=== PATIENT | female | born 1965 | race Caucasian/White ===

== ENCOUNTER 2016-07-11 04:16 | Emergency (ER) | payer MEDICARE ==
[2016-06-21 03:55] VITALS: BMI 43.1
[~2016-07-11 04:16] MED LIST: AMBIEN10 MG PO; ATIVAN1 MG; ATIVAN1 MG PO; CYMBALTA60 MG PO; HYDROCHLOROTHIA25 MG PO; HYDROCODONE-APA1 TAB PO; LYRICA50 MG PO; MAXALT10 MG PO; PERCOCET 5-3251 TAB PO; PROTONIX40 MG PO; VITAMIN D31000 UNI2 PO; VITAMIN D50000 UNIT PO; ZANAFLEX4 MG PO
[2016-07-11 04:39] LABS: APPEARANCE HAZY (CLEAR); BILIRUBIN NEGATIVE (NEGATIVE); COLOR YELLOW (YELLOW); GLUCOSE NEGATIVE (NEGATIVE); KETONE NEGATIVE (NEGATIVE); LEUKOCYTE ESTERASE NEGATIVE (NEGATIVE); NITRITE NEGATIVE (NEGATIVE); PROTEIN NEGATIVE (NEGATIVE); SPECIFIC GRAVITY 1.015 (1.005-1.020); UROBILINOGEN NORMAL (NORMAL)
[2016-07-11 04:55] LABS: BACTERIA MODERATE /hpf (NONE SEEN); EPITHELIAL CELLS 0-5 /hpf (0-5); RED CELLS - URINE 0-5 /hpf (0-5); WHITE CELLS - URINE 0-5 /hpf (0-5)
== END 2016-07-11 05:24 | disposition home or self-care (01) ==
LOC: D.ER 04:16
PROVIDERS: Emergency Medicine
DX: M54.5 Low back pain (principal); G89.29 Other chronic pain; M25.512 Pain in left shoulder; M79.602 Pain in left arm

== ENCOUNTER 2016-08-01 00:16 | Emergency (ER) | payer MEDICARE, MEDICAID ==
[2016-06-21 03:55] VITALS: BMI 43.1
== END 2016-08-01 01:52 | disposition home or self-care (01) ==
LOC: D.ER 00:16
DX: M79.7 Fibromyalgia (principal); R00.0 Tachycardia, unspecified

== ENCOUNTER 2016-09-08 06:31 | Emergency (ER) | payer MEDICARE ==
[2016-06-21 03:55] VITALS: BMI 43.1
== END 2016-09-08 08:02 | disposition home or self-care (01) ==
LOC: D.ER 06:31
DX: M54.5 Low back pain (principal); R10.2 Pelvic and perineal pain

== ENCOUNTER 2016-09-30 02:28 | Emergency (ER) | payer MEDICARE ==
[2016-06-21 03:55] VITALS: BMI 43.1
[2016-09-30 04:41] LABS: BASOPHILS 0.8 % (0.0-2.0); EOSINOPHILS 2.2 % (0-7); HEMATOCRIT 38.7 % (36.0-48.0); HEMOGLOBIN 12.6 g/dL (12-16); IMMATURE GRANULOCYTES 0.3 % (0-5); LYMPHOCYTES 45.4 % (15-50); MCHC 32.6 g/dL (31.0-37.0); MEAN PLATELET VOLUME 9.5 fL (7.4-10.4); MONOCYTES 7.2 % (2-11); NEUTROPHILS 44.1 % (40-80); PLATELET COUNT 294 10x3/uL (130-400); RBC 4.35 10x6/uL (4.00-5.40); RDW 13.2 % (11.5-14.5); WBC 6.2 10x3/uL (4.8-10.8)
[2016-09-30 04:58] LABS: AMYLASE - SERUM 36 U/L (25-115); CALC OSMOLALITY 280 mosm/kg (275-300); CALCIUM 8.8 mg/dL (8.5-10.1); CARBON DIOXIDE 27.8 mmol/L (21.0-32.0); CHLORIDE - SERUM 103 mmol/L (98-107); CREATININE - SERUM 0.8 mg/dL (0.6-1.3); GLUCOSE 130 mg/dL (74-106); POTASSIUM - SERUM 3.9 mmol/L (3.5-5.1); SODIUM 140 mmol/L (136-145); UREA NITROGEN 12 mg/dL (7-18); eGFR NON AFRICAN AMERICAN 80 mL/min (90-120)
== END 2016-09-30 06:13 | disposition home or self-care (01) ==
LOC: D.ER 02:28
PROVIDERS: Family Medicine
DX: R10.13 Epigastric pain (principal)

== ENCOUNTER 2017-01-14 06:19 | Emergency (ER) | payer MEDICARE ==
[2016-06-21 03:55] VITALS: BMI 43.1
[2017-01-14 06:45] LABS: APPEARANCE HAZY (CLEAR); BILIRUBIN NEGATIVE (NEGATIVE); COLOR YELLOW (YELLOW); GLUCOSE NEGATIVE (NEGATIVE); KETONE NEGATIVE (NEGATIVE); LEUKOCYTE ESTERASE TRACE (NEGATIVE); NITRITE NEGATIVE (NEGATIVE); PROTEIN NEGATIVE (NEGATIVE); UROBILINOGEN NORMAL (NORMAL)
[2017-01-14 06:58] LABS: WHITE CELLS - URINE 25-50 /hpf (0-5)
[2017-01-14 06:59] LABS: BACTERIA MANY /hpf (NONE SEEN); GRANULAR CAST RARE /lpf (NONE SEEN); HYALINE CAST OCC /lpf (NONE SEEN)
[2017-01-14 07:00] LABS: BASOPHILS 0.7 % (0-2); HEMATOCRIT 42.1 % (36.0-48.0); HEMOGLOBIN 13.7 g/dL (12-16); IMMATURE GRANULOCYTES 0.1 % (0-5); LYMPHOCYTES 38.9 % (15-50); MCHC 32.5 g/dL (31.0-37.0); MEAN PLATELET VOLUME 9.5 fL (7.4-10.4); MONOCYTES 7.7 % (2-11); NEUTROPHILS 50.6 % (40-80); PLATELET COUNT 330 10x3/uL (130-400); RBC 4.73 10x6/uL (4.00-5.40); RDW 12.6 % (11.5-14.5); WBC 7.6 10x3/uL (4.8-10.8)
[2017-01-14 07:13] LABS: ALBUMIN 3.6 g/dL (3.4-5.0); ANION GAP 13.6 mmol/L (8-16); BILIRUBIN - TOTAL 0.39 mg/dL (0.2-1.3); CALCIUM 9.4 mg/dL (8.5-10.1); CARBON DIOXIDE 28.9 mmol/L (21.0-32.0); CREATININE - SERUM 0.9 mg/dL (0.6-1.3); POTASSIUM - SERUM 3.5 mmol/L (3.5-5.1)
== END 2017-01-14 10:04 | disposition home or self-care (01) ==
LOC: D.ER 06:19
PROVIDERS: Family Medicine
DX: N39.0 Urinary tract infection, site not specified (principal)

== ENCOUNTER 2017-01-28 06:25 | Emergency (ER) | payer MEDICARE ==
[2016-06-21 03:55] VITALS: BMI 43.1
[2017-01-28 06:47] LABS: APPEARANCE CLEAR (CLEAR); BILIRUBIN NEGATIVE (NEGATIVE); COLOR YELLOW (YELLOW); GLUCOSE NEGATIVE (NEGATIVE); KETONE NEGATIVE (NEGATIVE); LEUKOCYTE ESTERASE TRACE (NEGATIVE); NITRITE NEGATIVE (NEGATIVE); PROTEIN NEGATIVE (NEGATIVE); SPECIFIC GRAVITY 1.015 (1.005-1.020); UROBILINOGEN NORMAL (NORMAL)
[2017-01-28 07:00] LABS: BACTERIA MANY /hpf (NONE SEEN); EPITHELIAL CELLS 0-5 /hpf (0-5); HYALINE CAST RARE /lpf (NONE SEEN); WHITE CELLS - URINE 0-5 /hpf (0-5)
== END 2017-01-28 07:50 | disposition home or self-care (01) ==
LOC: D.ER 06:25
PROVIDERS: Family Medicine
DX: M54.5 Low back pain (principal); R82.99 Other abnormal findings in urine

== ENCOUNTER 2017-04-11 03:40 | Emergency (ER) | payer MEDICARE ==
[2016-06-21 03:55] VITALS: BMI 43.1
[2017-04-11 04:20] LABS: BASOPHILS 0.4 % (0-2); EOSINOPHILS 1.3 % (0-7); HEMATOCRIT 42.8 % (36.0-48.0); HEMOGLOBIN 14.1 g/dL (12-16); IMMATURE GRANULOCYTES 0.6 % (0-5); LYMPHOCYTES 30.2 % (15-50); MCH 29.1 pg (26.0-34.0); MCHC 32.9 g/dL (31.0-37.0); MCV 88.4 fL (80.0-100.0); MEAN PLATELET VOLUME 9.4 fL (7.4-10.4); MONOCYTES 7.7 % (2-11); NEUTROPHILS 59.8 % (40-80); PLATELET COUNT 314 10x3/uL (130-400); RBC 4.84 10x6/uL (4.00-5.40); RDW 13.1 % (11.5-14.5); WBC 8.5 10x3/uL (4.8-10.8)
[2017-04-11 04:37] LABS: ALBUMIN 3.9 g/dL (3.4-5.0); BILIRUBIN - TOTAL 0.5 mg/dL (0.2-1.3); CARBON DIOXIDE 31.7 mmol/L (21.0-32.0); CREATININE - SERUM 0.9 mg/dL (0.6-1.3); POTASSIUM - SERUM 3.7 mmol/L (3.5-5.1); PROTEIN - SERUM 8.4 g/dL (6.4-8.2)
[2017-04-11 04:51] LABS: APPEARANCE CLEAR (CLEAR); BILIRUBIN NEGATIVE (NEGATIVE); COLOR YELLOW (YELLOW); GLUCOSE NEGATIVE (NEGATIVE); KETONE NEGATIVE (NEGATIVE); NITRITE NEGATIVE (NEGATIVE); PROTEIN TRACE mg/dL (NEGATIVE); UROBILINOGEN NORMAL (NORMAL)
[2017-04-11 04:52] LABS: BACTERIA MANY /hpf (NONE SEEN); EPITHELIAL CELLS 0-5 /hpf (0-5); RED CELLS - URINE 0-5 /hpf (0-5); WHITE CELLS - URINE 0-5 /hpf (0-5)
== END 2017-04-11 08:32 | disposition home or self-care (01) ==
LOC: D.ER 03:40
PROVIDERS: Family Medicine
DX: R10.9 Unspecified abdominal pain (principal)

== ENCOUNTER 2017-05-13 02:34 | Emergency (ER) | payer MEDICARE ==
[2016-06-21 03:55] VITALS: BMI 43.1
== END 2017-05-13 03:30 | disposition home or self-care (01) ==
LOC: D.ER 02:34
DX: R10.9 Unspecified abdominal pain (principal)

== ENCOUNTER 2017-06-11 03:32 | Emergency (ER) | payer MEDICARE ==
[2016-06-21 03:55] VITALS: BMI 43.1
== END 2017-06-11 04:13 | disposition home or self-care (01) ==
LOC: D.ER 03:32
DX: M54.2 Cervicalgia (principal); R07.89 Other chest pain

== ENCOUNTER 2017-09-09 06:20 | Emergency (ER) | payer MEDICARE ==
[2016-06-21 03:55] VITALS: BMI 43.1
[2017-09-09 07:39] LABS: APPEARANCE HAZY (CLEAR); BILIRUBIN NEGATIVE (NEGATIVE); COLOR YELLOW (YELLOW); GLUCOSE NEGATIVE (NEGATIVE); KETONE NEGATIVE (NEGATIVE); NITRITE NEGATIVE (NEGATIVE); PROTEIN NEGATIVE (NEGATIVE); SPECIFIC GRAVITY 1.015 (1.005-1.020); UROBILINOGEN NORMAL (NORMAL)
[2017-09-09 07:41] LABS: BACTERIA MANY /hpf (NONE SEEN); EPITHELIAL CELLS 0-5 /hpf (0-5); WHITE CELLS - URINE OCC /hpf (0-5)
[2017-09-09 07:52] LABS: BASOPHILS 0.3 % (0-2); EOSINOPHILS 0.9 % (0-7); HEMATOCRIT 42.2 % (36.0-48.0); HEMOGLOBIN 14.1 g/dL (12-16); IMMATURE GRANULOCYTES 0.5 % (0-5); LYMPHOCYTES 29.9 % (15-50); MCH 29.2 pg (26.0-34.0); MCHC 33.4 g/dL (31.0-37.0); MCV 87.4 fL (80.0-100.0); MONOCYTES 7.5 % (2-11); NEUTROPHILS 60.9 % (40-80); PLATELET COUNT 326 10x3/uL (130-400); RBC 4.83 10x6/uL (4.00-5.40); RDW 13.1 % (11.5-14.5); WBC 8.7 10x3/uL (4.8-10.8)
[2017-09-09 08:13] LABS: APTT 27.6 SECONDS (22.8-39.4)
[2017-09-09 08:14] LABS: D-DIMER-QUANTITATIVE 1.19 ug/mLFEU (0.20-0.54); INR 0.99 (0.85-1.17); PROTIME 12.7 SECONDS (11.6-15.0)
[2017-09-09 08:51] LABS: ALBUMIN 3.6 g/dL (3.4-5.0); ALKALINE PHOSPHATASE 85 U/L (46-116); ALT (SGPT) 30 U/L (10-68); BILIRUBIN - TOTAL 0.28 mg/dL (0.2-1.3); CALC OSMOLALITY 274 mosm/kg (275-300); CALCIUM 9.3 mg/dL (8.5-10.1); CARBON DIOXIDE 28.1 mmol/L (21.0-32.0); CHLORIDE - SERUM 101 mmol/L (98-107); CREATININE - SERUM 0.9 mg/dL (0.6-1.3); GLUCOSE 106 mg/dL (74-106); POTASSIUM - SERUM 3.4 mmol/L (3.5-5.1); PROTEIN - SERUM 8.3 g/dL (6.4-8.2); SODIUM 138 mmol/L (136-145); UREA NITROGEN 11 mg/dL (7-18); eGFR NON AFRICAN AMERICAN 70 mL/min (90-120)
[2017-09-09 09:06] LABS: AMYLASE - SERUM 35 U/L (25-115); CKMB 0.5 U/L (0.0-3.6); CREATINE KINASE 28 UL (21-215); LIPASE 129 U/L (73-393); MAGNESIUM - SERUM 1.9 mg/dL (1.8-2.4); PRO BNP 51 pg/mL (0-125); THYROID STIMULATING HORMONE 2.04 uIU/mL (0.36-3.74)
[2017-09-09 09:07] LABS: TROPONIN-I < 0.017 ng/mL (0.000-0.060)
== END 2017-09-09 12:33 | disposition home or self-care (01) ==
LOC: D.ER 06:20
PROVIDERS: Family Medicine
DX: R07.9 Chest pain, unspecified (principal); R00.0 Tachycardia, unspecified

== ENCOUNTER 2017-10-10 03:28 | Emergency (ER) | payer MEDICARE ==
[2016-06-21 03:55] VITALS: BMI 43.1
[2017-10-10 04:05] LABS: BASOPHILS 0.9 % (0-2); EOSINOPHILS 2.2 % (0-7); HEMATOCRIT 40.5 % (36.0-48.0); HEMOGLOBIN 13.2 g/dL (12-16); IMMATURE GRANULOCYTES 0.3 % (0-5); LYMPHOCYTES 43.1 % (15-50); MCH 28.9 pg (26.0-34.0); MCHC 32.6 g/dL (31.0-37.0); MCV 88.8 fL (80.0-100.0); MEAN PLATELET VOLUME 9.4 fL (7.4-10.4); MONOCYTES 8.2 % (2-11); NEUTROPHILS 45.3 % (40-80); PLATELET COUNT 316 10x3/uL (130-400); RBC 4.56 10x6/uL (4.00-5.40); RDW 13.5 % (11.5-14.5); WBC 6.7 10x3/uL (4.8-10.8)
[2017-10-10 04:22] LABS: ALBUMIN 3.5 g/dL (3.4-5.0); ANION GAP 12.4 mmol/L (8-16); APPEARANCE CLEAR (CLEAR); BILIRUBIN NEGATIVE (NEGATIVE); BILIRUBIN - TOTAL 0.3 mg/dL (0.2-1.3); CALCIUM 8.2 mg/dL (8.5-10.1); CARBON DIOXIDE 29.2 mmol/L (21.0-32.0); COLOR YELLOW (YELLOW); CREATININE - SERUM 1.1 mg/dL (0.6-1.3); GLUCOSE NEGATIVE (NEGATIVE); KETONE NEGATIVE (NEGATIVE); NITRITE NEGATIVE (NEGATIVE); POTASSIUM - SERUM 3.6 mmol/L (3.5-5.1); PROTEIN NEGATIVE (NEGATIVE); PROTEIN - SERUM 7.7 g/dL (6.4-8.2); UROBILINOGEN NORMAL (NORMAL)
[2017-10-10 04:23] LABS: BACTERIA MODERATE /hpf (NONE SEEN); EPITHELIAL CELLS 0-5 /hpf (0-5); RED CELLS - URINE 0-5 /hpf (0-5); WHITE CELLS - URINE NSEEN /hpf (0-5)
== END 2017-10-10 05:16 | disposition home or self-care (01) ==
LOC: D.ER 03:28
PROVIDERS: Family Medicine
DX: M54.41 Lumbago with sciatica, right side (principal)

== ENCOUNTER 2017-11-10 04:31 | Emergency (ER) | payer MEDICARE ==
[2016-06-21 03:55] VITALS: BMI 43.1
[2017-11-10 05:06] LABS: APPEARANCE CLEAR (CLEAR); BILIRUBIN NEGATIVE (NEGATIVE); COLOR YELLOW (YELLOW); GLUCOSE NEGATIVE (NEGATIVE); KETONE NEGATIVE (NEGATIVE); NITRITE NEGATIVE (NEGATIVE); PROTEIN NEGATIVE (NEGATIVE); SPECIFIC GRAVITY 1.015 (1.005-1.020); UROBILINOGEN NORMAL (NORMAL)
[2017-11-10 05:30] LABS: BASOPHILS 0.9 % (0-2); EOSINOPHILS 1.6 % (0-7); HEMATOCRIT 37.7 % (36.0-48.0); HEMOGLOBIN 12.4 g/dL (12-16); IMMATURE GRANULOCYTES 0.3 % (0-5); LYMPHOCYTES 37.6 % (15-50); MCH 28.8 pg (26.0-34.0); MCHC 32.9 g/dL (31.0-37.0); MCV 87.7 fL (80.0-100.0); MEAN PLATELET VOLUME 9.4 fL (7.4-10.4); MONOCYTES 7.7 % (2-11); NEUTROPHILS 51.9 % (40-80); PLATELET COUNT 300 10x3/uL (130-400); RDW 13.3 % (11.5-14.5); WBC 7.7 10x3/uL (4.8-10.8)
[2017-11-10 05:58] LABS: ANION GAP 13.1 mmol/L (8-16); CALCIUM 8.9 mg/dL (8.5-10.1); CARBON DIOXIDE 26.7 mmol/L (21.0-32.0); POTASSIUM - SERUM 3.8 mmol/L (3.5-5.1)
== END 2017-11-10 07:47 | disposition home or self-care (01) ==
LOC: D.ER 04:31
PROVIDERS: Emergency Medicine
DX: N83.201 Unspecified ovarian cyst, right side (principal); T83.728A Exposure of other implanted mesh into organ or tissue, initial encounter; R10.2 Pelvic and perineal pain

== ENCOUNTER 2018-01-09 06:43 | Emergency (ER) | payer MEDICARE ==
[~2018-01-09] VITALS: Ht 160 cm; Wt 113.2 kg
[2018-01-09 06:50] VITALS: Ht 160 cm; Wt 113.2 kg
[2018-01-09] MEDS ORDERED: COREG6.25 MG (06:54)
[2018-01-09 08:04] LABS: BASOPHILS 0.8 % (0-2); EOSINOPHILS 1.5 % (0-7); HEMATOCRIT 42.5 % (36.0-48.0); HEMOGLOBIN 14.1 g/dL (12-16); IMMATURE GRANULOCYTES 0.2 % (0-5); LYMPHOCYTES 34.5 % (15-50); MCH 29.4 pg (26.0-34.0); MCHC 33.2 g/dL (31.0-37.0); MCV 88.5 fL (80.0-100.0); MONOCYTES 6.1 % (2-11); NEUTROPHILS 56.9 % (40-80); PLATELET COUNT 296 10x3/uL (130-400); RDW 12.9 % (11.5-14.5); WBC 8.5 10x3/uL (4.8-10.8)
[2018-01-09 08:21] LABS: ALBUMIN 3.7 g/dL (3.4-5.0); ANION GAP 14.5 mmol/L (8-16); BILIRUBIN - TOTAL 0.35 mg/dL (0.2-1.3); CALCIUM 8.8 mg/dL (8.5-10.1); CARBON DIOXIDE 28.2 mmol/L (21.0-32.0); CREATININE - SERUM 1.1 mg/dL (0.6-1.3); POTASSIUM - SERUM 3.7 mmol/L (3.5-5.1); PROTEIN - SERUM 8.3 g/dL (6.4-8.2)
[2018-01-09 09:53] LABS: APPEARANCE CLEAR (CLEAR); BILIRUBIN NEGATIVE (NEGATIVE); COLOR YELLOW (YELLOW); GLUCOSE NEGATIVE (NEGATIVE); KETONE NEGATIVE (NEGATIVE); NITRITE NEGATIVE (NEGATIVE); PROTEIN TRACE mg/dL (NEGATIVE); UROBILINOGEN NORMAL (NORMAL)
[2018-01-09 09:57] LABS: WHITE CELLS - URINE 0-5 /hpf (0-5)
[2018-01-09 09:58] LABS: RED CELLS - URINE 0-5 /hpf (0-5)
[2018-01-09 09:59] LABS: BACTERIA MODERATE /hpf (NONE SEEN)
[2018-01-09 10:03] LABS: MUCUS <1+ /lpf (NONE SEEN)
[2018-01-09 12:40] VITALS: BP 153/91
== END 2018-01-09 12:41 | disposition home or self-care (01) ==
LOC: D.ER 06:43
PROVIDERS: Family Medicine
DX: R10.30 Lower abdominal pain, unspecified (principal); R30.0 Dysuria; R11.0 Nausea; I10 Essential (primary) hypertension

== ENCOUNTER 2018-02-27 01:36 | Emergency (ER) | payer MEDICARE ==
[~2018-02-27] VITALS: Ht 160 cm; Wt 114.1 kg
[~2018-02-27 01:36] MED LIST changes: +COREG6.25 MG
[2018-02-27 01:41] VITALS: BP 147/89; Ht 160 cm; Wt 114.1 kg
== END 2018-02-27 02:02 | disposition left against medical advice (07) ==
LOC: D.ER 01:36
DX: R10.9 Unspecified abdominal pain (principal); Z76.5 Malingerer [conscious simulation]; R45.5 Hostility; G89.18 Other acute postprocedural pain; I10 Essential (primary) hypertension; K21.9 Gastro-esophageal reflux disease without esophagitis

== ENCOUNTER 2018-04-18 23:48 | Emergency (ER) | payer MEDICARE ==
[~2018-04-18] VITALS: Ht 160 cm; Wt 110.0 kg
[2018-04-18 23:56] VITALS: Ht 160 cm; Wt 110.0 kg
[2018-04-19] MEDS ORDERED: CLEOCIN HCL150 MG PO
[2018-04-19 01:37] LABS: APPEARANCE CLEAR (CLEAR); BILIRUBIN NEGATIVE (NEGATIVE); COLOR YELLOW (YELLOW); GLUCOSE NEGATIVE (NEGATIVE); KETONE NEGATIVE (NEGATIVE); NITRITE NEGATIVE (NEGATIVE); PROTEIN NEGATIVE (NEGATIVE); UROBILINOGEN NORMAL (NORMAL)
[2018-04-19] MEDS ORDERED: NORCO 7.5/325 T1 TA1 PO (01:48)
[2018-04-19 01:56] VITALS: BP 128/81
== END 2018-04-19 01:56 | disposition home or self-care (01) ==
LOC: D.ER 23:48
PROVIDERS: Emergency Medicine
DX: R10.9 Unspecified abdominal pain (principal); R07.9 Chest pain, unspecified; I10 Essential (primary) hypertension; K21.9 Gastro-esophageal reflux disease without esophagitis

== ENCOUNTER 2018-06-02 04:25 | Emergency (ER) | payer MEDICARE ==
[~2018-06-02] VITALS: Ht 160 cm; Wt 113.6 kg
[~2018-06-02 04:25] MED LIST changes: +CLEOCIN HCL150 MG PO; +NORCO 7.5/325 T1 TA1 PO
[2018-06-02 04:28] VITALS: Ht 160 cm; Wt 113.6 kg
[2018-06-02 04:58] LABS: APPEARANCE CLEAR (CLEAR); COLOR YELLOW (YELLOW)
[2018-06-02 04:59] LABS: BILIRUBIN NEGATIVE (NEGATIVE); GLUCOSE NEGATIVE (NEGATIVE); KETONE NEGATIVE (NEGATIVE); NITRITE NEGATIVE (NEGATIVE); PROTEIN NEGATIVE (NEGATIVE); UROBILINOGEN NORMAL (NORMAL)
[2018-06-02 05:39] VITALS: BP 180/92
== END 2018-06-02 05:41 | disposition home or self-care (01) ==
LOC: D.ER 04:25
PROVIDERS: Family Medicine
DX: T83.711A Erosion of implanted vaginal mesh to surrounding organ or tissue, initial encounter (principal); M54.5 Low back pain; I10 Essential (primary) hypertension

== ENCOUNTER 2018-06-27 20:59 | Observation (INO) | payer MEDICARE ==
[~2018-06-27] VITALS: Ht 160 cm; Wt 113.7 kg
--- NOTE | ~2018-06-27 | CN ---
PATIENT NAME:WEST RENEE MEDICAL RECORD: [id number] : 63 LOCATION:[facility] D.2123 ADMIT DATE: 06/27/18 ACCOUNT: [id number] CONSULTING PHYSICIAN: MENDEL TABARES MD REFERRING PHYSICIAN: JOHN SILVERIO MD DATE OF CONSULTATION: 06/28/2018 HISTORY OF PRESENT ILLNESS: A 52-year-old female with no known history of coronary artery disease. She has a history of hypertension and strong family history of coronary artery disease, admitted with chest pain radiating to the back, accompanied by shortness of breath. This occurred fairly rapidly while shopping. She tells me she is having more shortness of breath recently, however, no set exercise program. Difficult to tell typical component of deconditioning. We are asked to see her concerning her cardiovascular status. PAST MEDICAL HISTORY: Includes; 1. History of rheumatoid arthritis of the back. 2. History of abdominal hernia with incarceration. 3. Hypertension. ALLERGIES: SULFA, STADOL, AND REGLAN. MEDICATIONS: Include Zanaflex 4 mg p.o. every 8 hours p.r.n., Coreg 6.25 b.i.d., Cymbalta 60 every day, [place], Ativan 1 p.o. t.i.d. p.r.n., Maxalt 10 mg p.o. every day. SOCIAL HISTORY: Nonsmoker. Nondrinker. No set exercise program. The patient able to take care of her ADLs. REVIEW OF SYSTEMS: The patient reports easy bruising but reports no swollen glands. The patient reports no fever, no night sweats, no significant weight gain, no significant weight loss. No significant exercise tolerance. The patient reports no dry eyes, no irritation, no vision change. Patient reports no difficulty hearing and no ear pain. Patient reports no frequent nose bleeds or nose and sinus problems. Patient reports on arm pain on exertion. No shortness of breath while lying down. No history of heart murmur. Patient reports no cough, no wheezing or coughing up blood. Patient reports no abdominal pain, no vomiting. Normal appetite. No diarrhea and not vomiting blood. No nausea and no constipation. Patient reports no incontinence. No difficulty urinating. No hematuria. No increased frequency. Patient reports no muscle aches. No weakness, no arthralgias, no back pain. No swelling of the extremities. Patient reports no abnormal mole, no jaundice, no rashes. Reports no loss of consciousness. No weakness and no numbness. No seizures, dizziness, or headaches. The patient reports no depression, no sleep disturbance, feeling safe in a relationship and no alcohol abuse. Patient reports on fatigue. Reports no runny nose or sinus pressure. No itching, no hives, and no frequent sneezing. PHYSICAL EXAMINATION: GENERAL: Middle-aged female, in no acute distress. VITAL SIGNS: Blood pressure 144/101, pulse 96 and regular. HEENT: Normocephalic, atraumatic. NECK: No bruits noted. HEART: Regular. A II/ systolic ejection murmur. LUNGS: Good air excursion. CONSULT REPORT [id number] WEST RENEE ABDOMEN: Soft, nontender. EXTREMITIES: Pulse 2+. No edema. DIAGNOSTIC DATA: ECG shows nonspecific ST-T changes anteriorly. IMPRESSION: Acute coronary syndrome. PLAN: Plan for angiography, intervention based on the above. TRANSINT:[id number] Voice Confirmation ID: [id number] DOCUMENT ID: [id number] MENDEL TABARES MD CC: [id number] DICTATION DATE: 06/28/1846 BALCONY WORKER: 06/28/18 1113 ADM IN [facility] [address] [place] [address]
--- NOTE | ~2018-06-27 | MORECARE ---
CASE MANAGEMENT DISCHARGE SUMMARY PATIENT: WEST RENEE UNIT: [id number] ADM DATE: 06/27/18 AGE: 52 : 63 SEX: F ROOM/BED: D.2836 AUTHOR: YULISSA EVANS PHYSICIAN: REFERRING PHYSICIAN: JOHN SILVERIO MD DATE OF SERVICE: 07/01/18 Discharge Plan Patient Name: WEST RENEE [facility] [facility] 1965 Planned Disposition: Home Anticipated Discharge Date: 06/29/18 Discharge Date: 06/29/2018 Expected LOS: 2 Initial Reviewer: [email or web address] Initial Review Date: 07/01/2018 Generated: 07/01/18 12:00 pm Patient Name: WEST RENEE Page 10642 at 1100 All edits/amendments must be made on the electronic document DICTATION DATE: 07/01/18 1059 EYEGLASS LENS CUTTER: PEDRO 07/01/18 1059 RPT#: [id number] DC DATE:06/29/18 STATUS: DIS IN [facility] [address] [place] [address] END OF REPORT
--- NOTE | ~2018-06-27 | HEMODYNAMI ---
PATIENT:WEST RENEE MEDICAL RECORD: [id number] : 63 LOCATION:[facility] D2123 ADMISSION DATE: 06/27/18 Generatedon:06/28/201815:21 Patient name: WEST RENEE Patient #: [id number] SSN: [id number] : 1965 Date of study: 06/28/2018 Page: Of Hemodynamic Procedure Report Patient Data Patient Demographics Procedure consent was obtained First Name: WEST Gender: Female Last Name: THELMA : 1965 Middle Initial: K Age: 52 year(s) Patient #: [id number] Race: SSN: [id number] Additional ID: [id number] Contact details Address: [address] [place] [address] State: [place] City: [place] Zip code: [address] Past Medical History Allergies Allergen Reaction Date Comments Reported Stadol 06/21/2016 Admission Admission Data Admission Date: 06/27/2018 Admission Time: 22:33 Admit Source: Other Room #: .2123 Procedure Procedure Types Cath Procedure Diagnostic Procedure C [facility] w/Coronaries Sedation Charges Moderate Sedation up to 15 minutes Procedure Description Procedure Date Procedure Date: 06/28/2018 Procedure Start Time: 15:09 Procedure End Time: 15:19 Procedure Staff Name Function Romulo Rivera MD Performing Physician Jayesh Andres RT Monitor Candida Chaudhary RN Nurse Humberto Saldivar RT Monitor Procedure Data Cath Procedure Fluoroscopy Diagnostic fluoroscopy Total fluoroscopy Time: 2.9 time: 2.9 min min Diagnostic fluoroscopy Total fluoroscopy dose: 337 dose: 337 mGy mGy Contrast Material Contrast Material Type Amount (ml) Isovue 300 50 Entry Location Entry Primary Successful Side Size Upsize Upsize Entry Closure Whitley ccessful Closure Location (Fr) 1 (Fr) 2 (Fr) Remarks Device Remarks Radial Right 6 Fr Mechanical artery Short Compression Estimated blood loss: 5 ml Diagnostic catheters Device Type Used For End Catheter Placement DIAGNOSTIC [place] 110cm 5 Procedure Fr catheter ([id number]) DIAGNOSTIC Pigtail 5Fr Procedure catheter ([id number]) Procedure Complications No complications Procedure Medications Medication Administration Route Dosage 0.9% NaCl I.V. 100 ml/hr Oxygen etCO2 Nasal cannula 2 l/min Lidocaine 2% added to field 20 Heparin Flush Bag added to field 2 bags (1000units/500ml NS) Radial Cocktail added to field 1 syringe (Verapomil 2mg/Nitro 400mcg/Heparin 1500units) Versed I.V. 2 mg Fentanyl I.V. 100 mcg Versed I.V. 2 mg Versed I.V. 2 mg Fentanyl I.V. 50 mcg Versed I.V. 2 mg Hemodynamics Rest Heart Rate: 87 (bpm) Pressure Samples Time Site Value (mmHg) Purpose Heart Use Rate(bpm) 15:17 LV 124/15,28 Snapshot 77 15:17 AO 111/63(88) Pullback 83 15:17 LV 126/21,28 Pullback 83 Gradients Valve Time Site 1 Site 2 Mean SEP/DFP Peak To Heart Use (mmHg) (sec/min) Peak Rate (mmHg) (bpm) Aortic 15:17 LV AO 18 23 15 83 126/21,28 111/63(88) Calculations Valve P-P Mean Valve Index Valve Source Name Gradient Area Flow (cm2) Aortic 15 18 15 18 Snapshots Pre Cath Intra NCS Post Cath Vital Signs Time Heart Resp SPO2 etCO2 NIBP (mmHg) Rhythm Pain Sedation Rate (ipm) (%) (mmHg) Status Level (bpm) 14:57:53 91 10 100 25 161/96(137) NSR 0 (11) 10(A) , No pain 15:02:34 82 15 100 26.8 161/94(117) NSR 0 (11) 10(A) , No pain 15:07:09 72 14 100 23.1 137/96(115) NSR 0 (11) 10(A) , No pain 15:15:08 84 10 98 15.6 118/84(113) NSR 0 (11) 10(A) , No pain 15:20:29 83 20 95 39.5 135/95(108) NSR 0 (11) 10(A) , No pain Medications Time Medication Route Dose Verified Delivered Reason Notes E ffectiveness by by 14:56:36 0.9% NaCl I.V. 100 Romulo Tirado used for ml/hr Nicole Jet procedure MD RN 14:56:43 Oxygen etCO2 2 l/min Romulo Candida used for Nasal [facility] procedure cannula MD JAVED 14:56:48 Lidocaine 2% added 20ml Romulo Sebastian for local to vial [facility] anesthetic field MD LOERA 14:56:53 Heparin Flush added 2 bags Romulo Sebastian used for Bag to [facility] procedure (1000units/500ml field MD LOERA NS) 14:56:58 Radial Cocktail added 1 Romulo Sebastian used for (Verapomil to syringe [facility] procedure 2mg/Nitro field MD LOERA 400mcg/Heparin 1500units) 14:59:17 Versed I.V. 2 mg Romulo Candida for [facility] sedation MD JAVED 14:59:28 Fentanyl I.V. 100 mcg Romulo Candida for [facility] sedation MD JAVED 15:06:41 Versed I.V. 2 mg Romulo Candida for [facility] sedation MD JAVED 15:12:46 Versed I.V. 2 mg Romulo Leachyla for [facility] sedation MD JAVED 15:13:05 Fentanyl I.V. 50 mcg Romulo Candida for [facility] sedation MD JAVED 15:15:43 Versed I.V. 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 Start room use. 14:48:32 Time tracking: Regular hours (M-F 7:00 - 5:00) 14:48:37 Plan of Care:Hemodynamics will remain stable., Cardiac rhythm will remain stable., Comfort level will be maintained., Respiratory function will remain adequate., Patient/ family verbilizes understanding of procedure., Procedure tolerated without complication., Recovers from procedure without complications.. 14:48:43 Patient received from PCU to CCL 1 Alert and oriented. Tansferred to table in Supine position. 14:48:45 Warm blankets applied, and paulie hugger turned on for patient comfort. 14:48:45 Correct patient and procedure confirmed by team. 14:48:48 Signed procedure consent form obtained from patient. 14:48:49 ECG and BP/O2 sat monitors applied to patient. 14:56:24 Vital chart was started 14:56:36 0.9% NaCl 100 ml/hr I.V. was administered by Candida Chaudhary RN; used for procedure; 14:56:43 Oxygen 2 l/min etCO2 Nasal cannula was administered by Candida Chaudhary RN; used for procedure; 14:56:48 Lidocaine 2% 20ml vial added to field was administered by Romulo Rivera MD; for local anesthetic; 14:56:53 Heparin Flush Bag (1000units/500ml NS) 2 bags added to field was administered by Romulo Rivera MD; used for procedure; 14:56:57 Baseline sample Acquired. 14:56:58 Radial Cocktail (Verapomil 2mg/Nitro 400mcg/Heparin 1500units) 1 syringe added to field was administered by Romulo Rivera MD; used for procedure; 14:57:00 Rhythm: sinus rhythm 14:57:06 Full Disclosure recording started 14:57:09 H&P Date Dictated: 06/28/2018 New H&P dictated by physician.. 14:57:10 Pre-procedure instructions explained to patient. 14:57:11 Pre-op teaching completed and patient verbalized understanding. 14:57:12 Family in patients room. 14:57:14 Patient NPO since Midnight. 14:57:17 Is the patient allergic to Iodine/contrast media? No. 14:57:18 Was the patient premedicated? No 14:57:22 Is patient on blood thinner?No 14:57:23 Patient diabetic? No. 14:57:25 Previous problem with sedation/anesthesia? No ? 14:57:27 Snore? Yes 14:57:28 Sleep apnea? No 14:57:30 Deviated septum? No 14:57:32 Opens mouth fully? Yes 14:57:33 Sticks out tongue? Yes 14:57:35 Airway obstruction? No ? 14:57:37 Dentures? No ? 14:57:41 Pre procedure: right dorsailis pedis pulse 2+ Normal; easily identifiable; not easily obliterated 14:57:43 Pre procedure: left dorsailis pedis pulse 2+ Normal; easily identifiable; not easily obliterated 14:57:53 Patient pain scale 0/10 ?. 14:57:58 IV patent on arrival in left forearm with 0.9% NaCl at KVO. 14:58:01 Lab results completed and on chart. 14:58:05 Right Radial & Right Groin area was prepped with chlora-prep and draped in sterile fashion 14:58:07 Alarms reviewed by R. N. 14:58:07 Sharps counted by scrub and verified by R.N. 14:58:08 Physician arrived 14:58:09 --------ALL STOP TIME OUT------ 14:58:09 Final Timeout: patient, procedure, and site verified with staff and physician. All members of the team are in agreement. 14:58:12 Right Radial & Right Groin site verified by team. 14:58:14 Physical assessment completed. ASA score P 2 - A patient with mild systemic disease as per Romulo Rivera MD. 14:58:18 Sedation plan: IV Moderate Sedation Medication:Versed, Fentanyl 14:59:17 Versed 2 mg I.V. was administered by Candida Chaudhary RN; for sedation; 14:59:26 Use device set Radial Dx or PCI 14:59:28 Fentanyl 100 mcg I.V. was administered by Candida Chaudhary RN; for sedation; 14:59:28 ACIST Syringe (19077) opened to sterile field. 14:59:28 Medline Cath Pack ([id number]) opened to sterile field. 14:59:28 Bag Decanter (2002) opened to sterile field. 14:59:29 DIAGNOSTIC WIRE .035 260cm J wire (819859) opened to sterile field. 14:59:29 ACIST Hand Control (90801) opened to sterile field. 14:59:30 ACIST Manifold (89543) opened to sterile field. 14:59:30 Tegaderm 4 x 4 (1626W) opened to sterile field. 14:59:31 MBrace Wrist Support ([id number]) opened to sterile field. 14:59:32 SHEATH 6FR Slender (45-7450) opened to sterile field. 15:06:41 Versed 2 mg I.V. was administered by Candida Chaudhary RN; for sedation; 15:08:15 Zero performed for pressure channel P1 15:08:54 Zero performed for pressure channel P1 15:09:10 Procedure started. 15:09:15 Local anesthetic to right radial artery with Lidocaine 2% by Romulo Rivera MD.INITIAL ACCESS ONLY 15:09:26 A 6 Fr Short sheath was inserted into the Right Radial artery 15:12:33 A DIAGNOSTIC [place] 110cm 5 Fr catheter (652009) was advanced over the wire and used for Procedure. 15:12:46 Versed 2 mg I.V. was administered by Candida Chaudhary RN; for sedation; 15:13:05 Fentanyl 50 mcg I.V. was administered by Candida Chaudhary RN; for sedation; 15:13:15 RCA angiography performed. 15:14:12 LCA angiography performed. 15:14:50 Catheter exchanged over wire. 15:15:01 A DIAGNOSTIC Pigtail 5Fr catheter ([id number]) was advanced over the wire and used for Procedure. 15:15:43 Versed 2 mg I.V. was administered by Candida Chaudhary RN; for sedation; 15:17:23 LV hemodynamics recorded. 15:17:24 LV gram done using DONG 15:17:28 Injector settings: Ml/sec: 10, Volume: 20, 15:17:35 EF : 55 % 15:17:36 Catheter removed. 15:17:41 TR BAND Standard ([id number]) opened to sterile field. 15:17:51 Sheath removed intact; hemostasis achieved with Mechanical Compression to the Right Radial artery. 15:17:52 Procedure ended.(Physican Out) 15:18:01 Fluoroscopy time 02.90 minutes. 15:18:12 Fluoroscopy dose: 337 mGy 15:18:12 Flurop Dose total: 337 15:18:15 Contrast amount:Isovue 300 50ml. 15:18:17 Sharps counted by scrub and verified by R.N. 15:18:19 TR band inflated with 13cc of air. 15:18:21 Insertion/operative site no bleeding no hematoma. 15:18:25 Post right radial artery:stable, soft, clean and dry 15:18:27 Post Procedure Pulses reassessed and unchanged 15:18:31 Post-procedure physical assessment completed. ASA score P 2 - A patient with mild systemic disease as per Romulo Rivera MD. 15:18:35 Post procedure rhythm: unchanged. 15:18:37 Estimated blood loss: 5 ml 15:18:39 Post procedure instruction explained to patient.Patient verbalizes understanding. 15:18:39 Patient needs reinforcement of post procedure teaching. 15:18:49 Procedure type changed to Cath procedure, Diagnostic procedure, LHC, LHC w/Coronaries, Sedation Charges, Moderate Sedation up to 15 minutes 15:19:22 Procedure and supply charges have been captured, reviewed, submitted and are correct. 15:19:24 Procedure Complication : No complications 15:19:26 Vital chart was stopped 15:19:26 See physician's report for complete and final results. 15:19:28 Report given to PCU. 15:19:30 Patient transfered to PCU with Stretcher. 15:19:33 Procedure ended. 15:19:33 Full Disclosure recording stopped 15:19:36 End room use (Document Last) Device Usage Item Name Manufacture Quantity Catalog Hospital Part Current Minimal Lot# / Number Charge Number Stock Stock Serial# Code ACIST Acist 1 84644 893721 869218 248957 20 Syringe Medical (89898) Systems Inc Medline Medline 1 [id number] 832780 26282 424361 5 Cath Pack ([id number]) Bag Microtek 1 2001S 760172 16299 749319 5 Decanter Medical Inc. () DIAGNOSTIC St Henrik 1 988183 729695 889540 948964 30 WIRE .035 260cm J wire (558409) ACIST Hand Acist 1 62103 409519 676174 410209 5 Control Medical (64771) Systems Inc ACIST Acist 1 02271 922008 975215 336182 5 Manifold Medical (23590) Systems Inc Tegaderm 4 3M 1 1626W 817485 473905 278063 5 x 4 (1626W) MBrace Advanced 1 140-0250-00 657970 66093 931135 5 Wrist Vascular Support Dynamics (197568324) SHEATH 6FR Terumo 1 [id number] 451118 168693 028841 5 Slender (80-1060) DIAGNOSTIC Terumo 1 40-5643 281456 475471 485850 5 [place] 110cm 5 Fr catheter (235497) DIAGNOSTIC Cardinal 1 [id number] 922662 894794 198319 5 Pigtail 5Fr Health catheter (228535V) TR BAND Terumo 1 [id number] 392892 942340 693921 40 Standard ([id number]) Signature Audit [place] Stage Time Signature Unsigned Intra-Procedure 06/28/2018 Humberto Saldivar 3:21:26 PM RT(R) Signatures Monitor : Jayesh Andres RT Signature : Date : Time : Monitor : Humberto Saldivar RT Signature : Date : Time : [address] [address] [place] [address]
--- NOTE | ~2018-06-27 | OP ---
PATIENT NAME: WEST RENEE MEDICAL RECORD: [id number] :63 LOCATION:D. D.3 ADMISSION DATE:06/27/18 SURGEON: MENDEL TABARES MD DATE OF OPERATION: 06/28/2018 PROCEDURE: Left heart catheterization, selective coronary angiography, right radial approach. CATHETERS: Radial sheath, Bryant catheter. The procedure was well tolerated. The patient was returned to the rouse. Sheath was removed. TR band was placed. FINDINGS: Left ventriculography in 30-degree DONG view; normal wall motion and normal systolic function. CORONARY ANATOMY: LEFT MAIN: Left main is free of disease. LAD: Free of disease in the diagonal system. CIRCUMFLEX: Free of disease in the marginal system. RIGHT CORONARY ARTERY: Dominant artery, gives rise to PDA, free of disease. IMPRESSION: Normal LV systolic function. Normal coronary anatomy. TRANSINT:[id number] Voice Confirmation ID: [id number] DOCUMENT ID: [id number] MENDEL TABARES MD CC: [id number] DICTATION DATE: 06/28/18 152 ENGRAVINGS POLISHER: 06/28/18 2147 ADM IN [facility] [address] [place] [address]
[~2018-06-27 20:59] MED LIST changes: -COREG6.25 MG; +COREG6.25 MG PO
[2018-06-27 22:15] LABS: BASOPHILS 0.5 % (0-2); EOSINOPHILS 1.6 % (0-7); HEMATOCRIT 39.9 % (36.0-48.0); HEMOGLOBIN 12.9 g/dL (12-16); IMMATURE GRANULOCYTES 0.3 % (0-5); LYMPHOCYTES 27.9 % (15-50); MCH 27.6 pg (26.0-34.0); MCHC 32.3 g/dL (31.0-37.0); MCV 85.3 fL (80.0-100.0); MEAN PLATELET VOLUME 9.3 fL (7.4-10.4); MONOCYTES 6.7 % (2-11); PLATELET COUNT 298 10x3/uL (130-400); RBC 4.68 10x6/uL (4.00-5.40); RDW 13.7 % (11.5-14.5); WBC 7.4 10x3/uL (4.8-10.8)
[2018-06-27 22:19] LABS: APPEARANCE CLEAR (CLEAR); BILIRUBIN NEGATIVE (NEGATIVE); COLOR STRAW (YELLOW); GLUCOSE NEGATIVE (NEGATIVE); KETONE NEGATIVE (NEGATIVE); NITRITE NEGATIVE (NEGATIVE); PROTEIN NEGATIVE (NEGATIVE); SPECIFIC GRAVITY 1.005 (1.005-1.020); UROBILINOGEN NORMAL (NORMAL)
[2018-06-27 22:19] LABS: APTT 28.1 SECONDS (22.8-39.4); INR 0.98 (0.85-1.17); PROTIME 12.5 SECONDS (11.6-15.0)
[2018-06-27 22:25] LABS: ALBUMIN 3.4 g/dL (3.4-5.0); ALKALINE PHOSPHATASE 81 U/L (46-116); ALT (SGPT) 21 U/L (10-68); BILIRUBIN - TOTAL 0.45 mg/dL (0.2-1.3); CALC OSMOLALITY 278 mosm/kg (275-300); CALCIUM 8.9 mg/dL (8.5-10.1); CHLORIDE - SERUM 101 mmol/L (98-107); CREATININE - SERUM 0.8 mg/dL (0.6-1.3); GLUCOSE 109 mg/dL (74-106); POTASSIUM - SERUM 3.9 mmol/L (3.5-5.1); PROTEIN - SERUM 7.8 g/dL (6.4-8.2); SODIUM 139 mmol/L (136-145); UREA NITROGEN 13 mg/dL (7-18); eGFR NON AFRICAN AMERICAN 79 mL/min (90-120)
[2018-06-27 22:33] LABS: CKMB 0.3 U/L (0.0-3.6); CREATINE KINASE 45 UL (21-215); MAGNESIUM - SERUM 1.9 mg/dL (1.8-2.4)
[2018-06-27 22:35] LABS: TROPONIN-I < 0.017 ng/mL (0.000-0.060)
[2018-06-27 23:00] VITALS: BP 184/94
[2018-06-28 00:18] VITALS: BP 144/101; BMI 43.0
[2018-06-28 05:04] VITALS: BP 95/59
[2018-06-28 07:01] LABS: CKMB 0.2 U/L (0.0-3.6); CREATINE KINASE 27 UL (21-215)
[2018-06-28 07:02] LABS: TROPONIN-I < 0.017 ng/mL (0.000-0.060)
[2018-06-28 08:58] LABS: BASOPHILS 0.5 % (0-2); EOSINOPHILS 1.2 % (0-7); HEMATOCRIT 37.3 % (36.0-48.0); HEMOGLOBIN 11.9 g/dL (12-16); IMMATURE GRANULOCYTES 0.3 % (0-5); LYMPHOCYTES 27.6 % (15-50); MCH 27.4 pg (26.0-34.0); MCHC 31.9 g/dL (31.0-37.0); MCV 85.9 fL (80.0-100.0); MEAN PLATELET VOLUME 9.5 fL (7.4-10.4); MONOCYTES 7.1 % (2-11); NEUTROPHILS 63.3 % (40-80); PLATELET COUNT 289 10x3/uL (130-400); RBC 4.34 10x6/uL (4.00-5.40); RDW 13.8 % (11.5-14.5); WBC 7.8 10x3/uL (4.8-10.8)
[2018-06-28 09:07] LABS: ANION GAP 13.7 mmol/L (8-16); CALCIUM 8.6 mg/dL (8.5-10.1); CARBON DIOXIDE 27.5 mmol/L (21.0-32.0); POTASSIUM - SERUM 4.2 mmol/L (3.5-5.1)
[2018-06-28 09:08] VITALS: BP 135/78
[2018-06-28 11:34] LABS: CKMB 0.3 U/L (0.0-3.6); CREATINE KINASE 46 UL (21-215); TROPONIN-I < 0.017 ng/mL (0.000-0.060)
[2018-06-28 12:14] VITALS: BP 132/68
[2018-06-28 12:18] VITALS: Ht 160 cm; Wt 113.7 kg
[2018-06-28 20:00] VITALS: BP 146/86
[2018-06-29] VITALS: BP 145/77
[2018-06-29 04:00] VITALS: BP 135/67
[2018-06-29 05:29] LABS: BASOPHILS 0.7 % (0-2); EOSINOPHILS 2.3 % (0-7); HEMATOCRIT 38.1 % (36.0-48.0); HEMOGLOBIN 11.9 g/dL (12-16); IMMATURE GRANULOCYTES 0.4 % (0-5); MCH 27.3 pg (26.0-34.0); MCHC 31.2 g/dL (31.0-37.0); MCV 87.4 fL (80.0-100.0); MEAN PLATELET VOLUME 9.3 fL (7.4-10.4); MONOCYTES 9.1 % (2-11); NEUTROPHILS 52.5 % (40-80); PLATELET COUNT 285 10x3/uL (130-400); RBC 4.36 10x6/uL (4.00-5.40); RDW 13.8 % (11.5-14.5)
[2018-06-29 05:33] LABS: WBC 5.7 10x3/uL (4.8-10.8)
[2018-06-29 06:07] LABS: ANION GAP 10.9 mmol/L (8-16); CALCIUM 8.5 mg/dL (8.5-10.1); CARBON DIOXIDE 30.4 mmol/L (21.0-32.0); CREATININE - SERUM 0.9 mg/dL (0.6-1.3); POTASSIUM - SERUM 4.3 mmol/L (3.5-5.1)
[2018-06-29 08:07] VITALS: BP 128/64
[2018-06-29] MEDS ORDERED: PROTONIX40 MG PO (10:55)
[2018-06-29] MEDS ORDERED: CARAFATE1 G PO (10:55)
[2018-06-29] MEDS ORDERED: MIRALAX17 GM PO (10:55)
[2018-06-29 11:32] VITALS: BP 146/81
[2018-06-29 15:39] VITALS: BP 97/53
== END 2018-06-29 22:13 | disposition home or self-care (01) ==
LOC: D.ER 20:59 → D.EDHOLD 22:33 → OBSVTIME 22:33 → D.M2 23:10
PROVIDERS: Emergency Medicine; Internal Medicine Interventional Cardiology; Internal Medicine Nephrology
DX: R07.9 Chest pain, unspecified (principal); M06.9 Rheumatoid arthritis, unspecified; I10 Essential (primary) hypertension; K21.9 Gastro-esophageal reflux disease without esophagitis; F32.9 Major depressive disorder, single episode, unspecified; G89.29 Other chronic pain; M54.9 Dorsalgia, unspecified; K59.00 Constipation, unspecified

== ENCOUNTER 2018-09-27 01:56 | Emergency (ER) | payer MEDICARE ==
[~2018-09-27] VITALS: Ht 160 cm; Wt 113.6 kg
[~2018-09-27 01:56] MED LIST changes: +CARAFATE1 G PO; +MIRALAX17 GM PO
[2018-09-27 02:01] VITALS: Ht 160 cm; Wt 113.6 kg
[2018-09-27 02:30] VITALS: BP 126/84
== END 2018-09-27 02:30 | disposition home or self-care (01) ==
LOC: D.ER 01:56
DX: M54.5 Low back pain (principal)

== ENCOUNTER 2019-03-07 23:36 | Emergency (ER) | payer MEDICARE ==
[~2019-03-07] VITALS: Ht 160 cm; Wt 118.2 kg
[2019-03-07 23:43] VITALS: Ht 160 cm; Wt 118.2 kg
[2019-03-08 00:36] LABS: HEMATOCRIT 38.5 % (36.0-48.0); HEMOGLOBIN 12.6 g/dL (12-16); LYMPHOCYTES 27.9 % (15-50); MCH 28.6 pg (26.0-34.0); MCHC 32.7 g/dL (31.0-37.0); MCV 87.3 fL (80.0-100.0); NEUTROPHILS 67.2 % (40-80); PLATELET COUNT 266 10x3/uL (130-400); RBC 4.41 10x6/uL (4.00-5.40); WBC 7.6 10x3/uL (4.8-10.8)
[2019-03-08 00:37] LABS: APPEARANCE CLEAR (CLEAR); BILIRUBIN NEGATIVE (NEGATIVE); COLOR YELLOW (YELLOW); GLUCOSE NEGATIVE (NEGATIVE); KETONE NEGATIVE (NEGATIVE); NITRITE NEGATIVE (NEGATIVE); PROTEIN NEGATIVE (NEGATIVE); SPECIFIC GRAVITY 1.005 (1.005-1.020); UROBILINOGEN NORMAL (NORMAL)
[2019-03-08 00:52] LABS: ALBUMIN 3.3 g/dL (3.4-5.0); ANION GAP 13.6 mmol/L (8-16); BILIRUBIN - TOTAL 0.5 mg/dL (0.2-1.3); CALCIUM 8.7 mg/dL (8.5-10.1); CARBON DIOXIDE 29.3 mmol/L (21.0-32.0); POTASSIUM - SERUM 3.9 mmol/L (3.5-5.1)
[2019-03-08 02:34] VITALS: BP 123/77
== END 2019-03-08 02:34 | disposition home or self-care (01) ==
LOC: D.ER 23:36
PROVIDERS: Family Medicine
DX: R10.31 Right lower quadrant pain (principal)

== ENCOUNTER 2019-05-15 03:35 | Emergency (ER) | payer MEDICARE ==
[~2019-05-15] VITALS: Ht 160 cm; Wt 116.8 kg
[2019-05-15 03:38] VITALS: Ht 160 cm; Wt 116.8 kg
[2019-05-15 04:30] LABS: BASOPHILS 0.6 % (0-2); EOSINOPHILS 2.2 % (0-7); HEMATOCRIT 40.2 % (36.0-48.0); HEMOGLOBIN 12.8 g/dL (12-16); IMMATURE GRANULOCYTES 0.5 % (0-5); MCH 28.4 pg (26.0-34.0); MCHC 31.8 g/dL (31.0-37.0); MCV 89.3 fL (80.0-100.0); MEAN PLATELET VOLUME 9.6 fL (7.4-10.4); MONOCYTES 4.8 % (2-11); NEUTROPHILS 59.9 % (40-80); PLATELET COUNT 316 10x3/uL (130-400); RDW 13.2 % (11.5-14.5); WBC 8.4 10x3/uL (4.8-10.8)
[2019-05-15 04:40] LABS: ANION GAP 12.9 mmol/L (8-16); CALCIUM 8.5 mg/dL (8.5-10.1); CARBON DIOXIDE 27.7 mmol/L (21.0-32.0); POTASSIUM - SERUM 3.6 mmol/L (3.5-5.1)
[2019-05-15 04:47] LABS: ALBUMIN 3.3 g/dL (3.4-5.0); BILIRUBIN - TOTAL 0.42 mg/dL (0.2-1.3); PROTEIN - SERUM 7.8 g/dL (6.4-8.2)
[2019-05-15 04:50] LABS: APPEARANCE CLEAR (CLEAR); BILIRUBIN NEGATIVE (NEGATIVE); COLOR YELLOW (YELLOW); GLUCOSE NEGATIVE (NEGATIVE); KETONE NEGATIVE (NEGATIVE); NITRITE NEGATIVE (NEGATIVE); PROTEIN NEGATIVE (NEGATIVE); UROBILINOGEN NORMAL (NORMAL)
[2019-05-15 05:05] LABS: UDS - AMPHET NEGATIVE QUAL (NEGATIVE); UDS - BARB NEGATIVE QUAL (NEGATIVE); UDS - BENZO NEGATIVE QUAL (NEGATIVE); UDS - COCAINE NEGATIVE QUAL (NEGATIVE); UDS - OPIATE POSITIVE QUAL (NEGATIVE); UDS - PCP NEGATIVE QUAL (NEGATIVE); UDS - THC NEGATIVE QUAL (NEGATIVE)
[2019-05-15 06:37] VITALS: BP 173/82
== END 2019-05-15 06:38 | disposition home or self-care (01) ==
LOC: D.ER 03:35
PROVIDERS: Family Medicine
DX: R10.9 Unspecified abdominal pain (principal)